=== PATIENT | male | born 1980 | race Caucasian/White ===

== ENCOUNTER 2022-05-08 08:45 | Outpatient (CLI) | payer BC, SELFPAY | END 2022-05-08 08:46 | disposition home or self-care (01) | LOC: NFLDREF 05-15 12:50 | PROVIDERS: PCP Family Medicine; Referring Provider Family Medicine; Visit Provider Family Medicine | DX: Z00.00 Encounter for general adult medical examination without abnormal findings (principal); R79.89 Other specified abnormal findings of blood chemistry; D64.9 Anemia, unspecified; Z13.6 Encounter for screening for cardiovascular disorders | CPT/HCPCS: 80048; 80061 ==

== ENCOUNTER 2022-05-14 08:05 | Outpatient (CLI) | payer BC, SELFPAY | END 2022-05-14 08:06 | disposition home or self-care (01) | PROVIDERS: PCP Family Medicine; Visit Provider Family Medicine | DX: Z00.00 Encounter for general adult medical examination without abnormal findings (principal); D64.9 Anemia, unspecified; R79.89 Other specified abnormal findings of blood chemistry; Z13.6 Encounter for screening for cardiovascular disorders; Z13.29 Encounter for screening for other suspected endocrine disorder; Z12.5 Encounter for screening for malignant neoplasm of prostate | CPT/HCPCS: 80053; 80061; 80076; 82607; 82627; 82652; 82670; 82728; 82746; 83001; 83002; 83003; 83090; 84153; 84270; 84403; 84443 ==